=== PATIENT | female | born 1975 | race Caucasian/White ===

== ENCOUNTER → 2021-01-30 09:34 | Outpatient (CLI) | payer OTHER, SELFPAY ==
[2021-01-30 13:41] LABS: COVID19 -Nasal RAPID Negative (Negative)
== END ==
PROVIDERS: Visit Provider Physician Assistant
DX: Z01.812 Encounter for preprocedural laboratory examination (principal); Z20.822 Contact with and (suspected) exposure to COVID-19
CPT/HCPCS: 87635

== ENCOUNTER 2021-01-31 10:11 | Day surgery (SDC) | payer OTHER, SELFPAY ==
[2021-01-29 07:48] VITALS: BMI 34.3
[2021-01-31] VITALS (8 sets, daily range): BP systolic 95–129; BP diastolic 55–86; PULSE 67–110; RESP 11–16; TEMP 36.6–36.8; O2SAT 93–100; BMI 34.3
--- NOTE | 2021-01-31 10:51 | PM.HP.1 ---
History of Present Illness History of Present Illness Date Patient Seen: 01/31/21 Time Patient Seen: 10:51 Chief complaint: SDC *$63 copay* Narrative: Patient with a right scapholunate ligament disruption resulting in right wrist pain and dysfunction. Patient History Medical History Anemia Arthritis HTN (hypertension) Injury of right scapholunate ligament with no instability Migraines Surgical History History of carpal tunnel surgery of right wrist Hx of bariatric surgery Hx of cholecystectomy Family & Social History Social History: household members spouse Tobacco & Substance use: Smoking Status Never smoker alcohol intake current Substance Use Type does not use Meds Home Medications and Allergies Home Medications Medication Instructions Recorded Confirmed Type amlodipine 10 mg PO DAILY 01/29/21 01/31/21 History hydrocodone-acetaminophen [[place]] 1 - 2 tab PO Q4-6H PRN 01/29/21 01/31/21 History tizanidine 8 mg PO DIRECTED PRN 01/29/21 01/31/21 History Allergies Allergy/AdvReac Type Severity Reaction Status Date / Time No Known Drug Allergies Allergy Verified 01/31/21 10:26 Review of Systems Review of Systems ROS: Yes All systems reviewed with the patient and are negative except as otherwise documented Exam Vital Signs (past 8 hours): - 01/31/21 10:48 Temperature 98.2 F Pulse Rate 75 Respiratory Rate 16 Blood Pressure 125/86 Pulse Oximetry 100 Oxygen Delivery Method Room Air Narrative Exam Narrative: Some mild swelling to the dorsal aspect of the wrist. Full range of motion of the fingers but decreased range of motion of the radiocarpal joint with about 60? of both flexion and extension. Normal supination and pronation. Normal radial and ulnar deviation. Pain with palpation over the scapholunate interval. Positive Amezquita click test. Ulnar, median, and radial nerve intact both motor and sensory function. Assessment & Plan Assessment & Plan narrative: Right scapholunate ligament disruption. Discussed with patient that this injury will require surgical treatment. We went over surgical treatment options both operative versus non operative and the risks and limitations associated with both. At this point patient is interested in proceeding with surgical treatment. The risk, benefits, alternatives, possible complications, operative course, and postop outcomes were discussed. Complications including but not limiting to bleeding, infection, fracture, nerve injury, continued pain postoperatively or instability postoperatively were discussed in detail. Medical complications including but not limited to deep venous thrombosis event, anesthesia complications with excessive bleeding, vascular events or cardiac events and other possible complications were discussed in detail. Need for postoperative rehabilitation and anticipated hospital stay and clinical course were discussed in detail. Patient acknowledges understanding and elects to proceed with surgery. COVID-19 COVID-19 status: Negative Time Spent With Patient Time with patient: less than 15 minutes
[2021-01-31] MEDS: LACTATED RINGERS 1,000 ML 42 ML IV ×2 (10:52→12:13)
--- NOTE | 2021-01-31 10:53 | PM.PREOP ---
Pre-operative Note COVID-19 COVID-19 status: Negative Interval Note History & Physical reviewed/Exam performed by Physician: Yes Changes to H&P: No
[2021-01-31] MEDS: CEFAZOLIN 1 GM VIAL 2 GM IV (11:15)
--- NOTE | 2021-01-31 11:35 | SUR.OPER ---
Supine on padded OR bed, head on pillow, left arm secured on padded arm boards at <90 degrees abduction, right arm on draped free on black arm table. legs uncrossed, safety belt at thigh, tape over blanket over lower legs.
[2021-01-31] MEDS: BUPIVACAINE 0.5% W/ EPI (PF) 30 ML VIAL INJ (11:49)
[2021-01-31] MEDS: fentaNYL 100 MCG/2 ML INJ IV ×2 (12:58→13:10)
[2021-01-31] MEDS: ONDANSETRON 4 MG/2 ML INJ IV (12:59)
[2021-01-31] MEDS: HYDROMORPHONE 2 MG INJ IV (12:59)
--- NOTE | 2021-01-31 13:08 | PM.OP.1 ---
Operative Date/Time/Diagnoses Date of procedure: 01/31/21 Time of procedure: 11:30 Pre-op diagnosis: Right scapholunate ligament rupture Post-op diagnosis: same Procedure & Clinicians Procedure: Right scapholunate ligament reconstruction Same procedure as scheduled: Yes Indications: Right scapholunate ligament rupture Surgeon: Juan Carlos Mariee Click Yes if Unassisted: Yes Anesthesia Type: General Operative Notes Findings: Rupture of the scapholunate ligament with no sign of any diastasis. No SLAC. Closure Type: primary Specimen(s): none sent Applied: implant(s) (Three Arthrex screws and 2 K-wires) Estimated Blood Loss (mL): 5 Tourniquet time (min): 65 Procedure in detail: On date of service, patient was met in the holding area where his operative site was signed and witnessed by the OR staff. The surgery is once again discussed with the patient in remaining questions or concerns he had were answered fully. Patient was taken back to the operating theater and placed on the operating table in a supine position. Great care was taken to ensure that all bony prominences were appropriately padded. A well-padded tourniquet was placed up along the upper extremity. Time-out was performed verifying patient's name, procedure, and operative site. The limb was prepped and draped in the normal sterile fashion. An Esmarch was used to exsanguinate the limb the tourniquet was turned up to 250 mm of mercury. Longitudinal incision was made. The incision was ulnar to the Payton's tubercle. It was centered over the radiocarpal joint. Fifteen blade was used to incise through skin and fascial tissue. Sharp dissection was continued with a 15 blade until the extensor mechanism was identified. Branches of the superficial radial nerve were identified and protected as well as branches coming off ulnarly. Once we had the extensor mechanism identified and was split allowing a release of the EPL tendon. This was also done ulnarly opening up 4th extensor compartment and then done radially opening up the 2nd extensor compartment. This allowed us to retract the extensor tendons. Next, the radiocarpal joint was opened preserving the carpal ligaments. This gave us good visualization of the scapholunate interval. There was a complete rupture to the scapholunate ligament. But no sign of any radiocarpal arthritic process. K-wire was placed in to the scaphoid and 1 into the lunate and the scapholunate interval was reduced. These 2 K-wires were then held together to close down any diastasis. Another K-wire was placed between the scaphoid and the capitate to keep it from falling back into flexion. A 2nd K-wire was placed between the scaphoid and the lunate. Next, 3 guidewires were placed. 1 in the lunate and 2 in the scaphoid 1 by the scapholunate interval and then 1 very distally. C-arm used to verify reduction of the scapholunate interval as well as guidewire positioning. Once we were satisfied with the positioning cannulated drill was used to drill over the 3 guidewires. The bony hole tunnels were then copiously irrigated removing any remaining tissue. Suture tape was tenodesed into the 1st hole in the scaphoid. Then under tension this was then placed into the 2nd hole into the lunate going across the scapholunate interval providing a solid repair of the scapholunate interval. Next, the suture material were then brought up to the distal hole of the scaphoid to keep it from falling into flexion. C-arm was brought in to verify maintenance of reduction. The 2 reducing K-wires were removed and there was no gapping at the scapholunate interval once those K-wires were removed. We were able to flex and extend the wrist with no abnormal motion of the scapholunate interval been no sign of any diastasis. Good signs of a solid repair of the scapholunate interval. The wound was then copiously irrigated. The capsule was closed and repaired using 3-0 FiberWire. The extensor mechanism was closed with Vicryl recreating the 4th extensor compartment as well as the 3rd and 2nd extensor compartments. The rest of the wound was closed in layered fashion. Patient's hand and arm was cleaned dried and dressed. Patient was placed into a splint and taken to the PACU in stable condition. Complications: none Post-operative Condition: stable Disposition: PACU Plan for aftercare: Patient be immobilized for a total of 6 weeks. No restrictions range of motion of the fingers.
[2021-01-31] MEDS: OXYCODONE IR 5 MG TABLET PO (13:23)
== END 2021-01-31 14:05 | disposition home or self-care (01) ==
PROVIDERS: Referring Provider Orthopaedic Surgery; Visit Provider Orthopaedic Surgery
PROC: (CPT 25320; principal; 2021-01-31 11:45)
DX: S69.91XA Unspecified injury of right wrist, hand and finger(s), initial encounter (principal); I10 Essential (primary) hypertension
CPT/HCPCS: 25320; J0690; J1100; J1170; J2405; J2704; J3010

== ENCOUNTER → 2021-05-31 09:38 | Outpatient (CLI) | payer OTHER, SELFPAY | PROVIDERS: PCP Student in an Organized Health Care Education/Training Program; Referring Provider Student in an Organized Health Care Education/Training Program; Visit Provider Student in an Organized Health Care Education/Training Program | DX: R22.9 Localized swelling, mass and lump, unspecified (principal); Z53.8 Procedure and treatment not carried out for other reasons ==

== ENCOUNTER → 2021-06-03 07:10 | Outpatient (CLI) | payer OTHER, SELFPAY ==
--- NOTE | 2021-06-03 | DI.MRI.S_ITS ---
PROCEDURE: MR SHOULDER RT WO/W CON INDICATIONS: Localized swelling, mass and lump, unspecified TECHNIQUE: Noncontrast oblique coronal T1 spin echo and T2 fast spin echo with fat saturation, oblique sagittal T1 spin echo and T2 fast spin echo with fat saturation, axial T1 spin echo and T2 fast spin echo with fat saturation through the shoulder. Post-contrast oblique coronal, oblique sagittal, and axial T1 spin echo with fat saturation through the shoulder. COMPARISON: None. FINDINGS: Image quality: Excellent. Rotator cuff: Tendinosis and low-grade articular and bursal surface partial thickness tear involving anterior fibers of distal supraspinatus at its insertion on the humeral head is seen. Distal infraspinatus and subscapularis tendons are intact. Sagittal images demonstrate no significant muscle atrophy. Bones and bursae: No suspicious bone marrow enhancement. Mild acromioclavicular joint and glenohumeral joint osteoarthritic changes are seen. No significant in subacromial-subdeltoid or subcoracoid bursal fluid is present. Surface skin marker is placed over right axilla/lateral right chest wall. No discrete soft tissue mass or fluid collection is seen at the site of the marker. A few borderline prominent right axillary lymph nodes are seen and measures 1.4 cm in short axis diameter. Capsule and soft tissues: No suspicious soft tissue enhancement. No definite focal labral tear is identified. The long head of the biceps tendinosis is likely present. The rotator interval appears normal, without fibrosis. The coracohumeral ligament is normal in thickness. IMPRESSION: 1. No discrete soft tissue mass or fluid collection is noted in right axilla/upper lateral right chest wall. Mildly prominent right axillary lymph nodes measures up to 1.4 cm in short axis diameter. No area of abnormal soft tissue enhancement. 2. Mild acromioclavicular joint and glenohumeral joint osteoarthritis. No marrow edema. No abnormal intraosseous enhancement. No fracture or dislocation. 3. Distal supraspinatus tendinosis and low-grade articular and bursal surface partial thickness tear involving anterior fibers of distal supraspinatus. No full-thickness rotator cuff tendon rupture. No muscle atrophy. No intramuscular mass or abnormal enhancement. 4. No gross focal labral tear. Proximal intra-articular portion of long head of biceps tendinosis. Dictated by: Doug Hill M.D. on 06/03/2021 at 9:49 Approved by: Doug Hill M.D. on 06/03/2021 at 9:59
== END ==
PROVIDERS: PCP Student in an Organized Health Care Education/Training Program; Referring Provider Student in an Organized Health Care Education/Training Program; Visit Provider Student in an Organized Health Care Education/Training Program
DX: R22.9 Localized swelling, mass and lump, unspecified (principal); M19.011 Primary osteoarthritis, right shoulder; M75.111 Incomplete rotator cuff tear or rupture of right shoulder, not specified as traumatic
CPT/HCPCS: 73223

== ENCOUNTER → 2024-05-10 16:12 | Outpatient (CLI) | payer OTHER, SELFPAY ==
--- NOTE | 2024-05-10 16:15 | DI.MRI.S_ITS ---
PROCEDURE: MR LUMBAR SPINE WO CON INDICATIONS: INTERVERTEBRAL DISC DISORDERS WITH RADICULOPATHY TECHNIQUE: Noncontrast sagittal T1 spin echo and T2 fast echo, sagittal STIR, and T2 fast spin echo through the lumbar spine. In cases with scoliosis, additional coronal T2 fast spin echo may be performed. COMPARISON: None. FINDINGS: Image quality: Excellent. Anatomy: Lumbosacral transitional anatomy, with lumbarization of the S1 vertebral body. There are rudimentary facet joints at S1-S2 along with an intervertebral disc at S1-S2. There are 5 nonrib-bearing lumbar vertebrae, which are annotated on this examination. Bones: Marrow signal within normal limits. The vertebral body heights are preserved. Schmorl's nodes at the inferior endplates of T11 and T12 and superior endplates of T12 and L1. Alignment: Preservation of lumbar lordosis. Discs: Mild multilevel disc desiccation. Mild disc height loss at L3-L4. Spinal cord: The conus medullaris ends at the level of T12-L1. No abnormal cord signal. Muscles: Mild diffuse paraspinal muscle atrophy. Prevertebral: No prevertebral soft tissue edema. No abdominal aortic aneurysm. No abnormal prevertebral soft tissue mass in the [id number]. Multilevel findings: Disc bulging, facet arthropathy (most conspicuous at the bilateral L4-L5 and L5-S1 levels), ligamentum flavum thickening. INDIVIDUAL LEVELS: T12-L1: No central canal stenosis. No foraminal stenosis. L1-L2: No central canal stenosis. No foraminal stenosis. L2-L3: Mild disc bulge with a left paracentral protrusion. Mild central canal stenosis. No foraminal stenosis. L3-L4: Mild disc bulge with mild bilateral foraminal zone protrusions. Mild central canal stenosis. Mild bilateral foraminal stenosis. L4-L5: Mild disc bulge with bilateral foraminal zone protrusions. Mild central canal stenosis. Moderate right and mild left foraminal stenosis. L5-S1: Mild disc bulge with right subarticular/foraminal zone protrusion that contacts the descending right S1 nerve root (2/5).No central canal stenosis. Mild left and moderate right foraminal stenosis. IMPRESSION: 1. Possible lumbosacral transitional anatomy. Please consider whole spine x-rays for accurate numbering prior to any operative intervention. 2. No acute lumbar vertebral body compression fracture. 3. No severe central canal stenosis. 4. Moderate right foraminal stenoses at L4-L5 and L5-S1. 5. Mild L5-S1 disc bulge with right subarticular/foraminal zone protrusion that contacts the descending right S1 nerve root. Please correlate with symptomatology in the corresponding dermatomal distribution. Dictated by: Dimitrios Valles M.D. on 05/17/2024 at 12:56 Approved by: Dimitrios Valles M.D. on 05/17/2024 at 13:12
== END ==
LOC: MRI 16:14
PROVIDERS: PCP Student in an Organized Health Care Education/Training Program; Referring Provider Pain Medicine Pain Medicine; Visit Provider Pain Medicine Pain Medicine
DX: M51.16 Intervertebral disc disorders with radiculopathy, lumbar region (principal); M51.17 Intervertebral disc disorders with radiculopathy, lumbosacral region; M48.061 Spinal stenosis, lumbar region without neurogenic claudication; M48.07 Spinal stenosis, lumbosacral region; M47.26 Other spondylosis with radiculopathy, lumbar region; M47.27 Other spondylosis with radiculopathy, lumbosacral region
CPT/HCPCS: 72148